=== PATIENT | male | born 1950 | race Caucasian/White ===

== ENCOUNTER → 2020-08-28 | Outpatient (CLI) | payer SELFPAY | LOC: M LABSMTC 14:51 | PROVIDERS: ATTEND Pediatrics | DX: Z20.828 Contact with and (suspected) exposure to other viral communicable diseases (principal) ==

== ENCOUNTER → 2020-09-03 | Outpatient (REF) | payer MEDICARE, MEDICAID ==
[~2020-09-03] MED LIST: APAP325T4 PO; ASPI-161 PO; ATEN25TA PO; D31000TA2 PO; DONE10TA90 PO; DULC10SU2 PR; FLEEENE12 PR; FLOM0.4C39 PO; FOLI1TAB11 PO; ISOS30TA4 PO; MILKSUS3 PO; NAME28CA PO; RISP-7 PO; SERT50TA29 PO
[2020-09-03 08:48] LABS: HEMATOCRIT 40.1 % (42.0-52.0); HEMOGLOBIN 12.8 g/dl (13.5-17.5); MEAN CORPUSCULAR HEMOGLOBIN 30.4 pg (27.0-33.0); MEAN CORPUSCULAR HGB CONC 31.9 g/dl (32.0-36.5); MEAN CORPUSCULAR VOLUME 95.2 fl (80.0-96.0); PLATELET COUNT, AUTOMATED 193 10^3/uL (150-450); RED BLOOD COUNT 4.21 10^6/uL (4.30-6.10); WHITE BLOOD COUNT 6.2 10^3/uL (4.0-10.0)
[2020-09-03 09:23] LABS: ALBUMIN 3.3 GM/DL (3.2-5.2); ALT/SGPT 18 U/L (12-78); BILIRUBIN,TOTAL 0.5 MG/DL (0.2-1.0); BLOOD UREA NITROGEN 20 MG/DL (7-18); CALCIUM LEVEL 8.5 MG/DL (8.8-10.2); CARBON DIOXIDE LEVEL 25 MEQ/L (21-32); CHLORIDE LEVEL 112 MEQ/L (98-107); GLOMERULAR FILTRATION RATE > 60.0 (>42); GLUCOSE, FASTING 80 MG/DL (70-100); POTASSIUM SERUM 3.5 MEQ/L (3.5-5.1); SODIUM LEVEL 144 MEQ/L (136-145); TOTAL PROTEIN 6.2 GM/DL (6.4-8.2)
== END ==
LOC: SKLAB8 07:00
PROVIDERS: ATTEND Internal Medicine
DX: R97.20 Elevated prostate specific antigen [PSA] (principal); I25.10 Atherosclerotic heart disease of native coronary artery without angina pectoris; I10 Essential (primary) hypertension; F03.90 Unspecified dementia, unspecified severity, without behavioral disturbance, psychotic disturbance, mood disturbance, and anxiety
CPT/HCPCS: 36415; 80053; 84443; 85027; G0103

== ENCOUNTER → 2020-09-04 | Outpatient (REF) | payer MEDICARE ==
[~2020-09-04] MED LIST changes: +ISOS1TAB35 PO; -ISOS30TA4 PO
== END ==
LOC: SKLAB8 09-03 14:49 → EDSTATUS 09-28 09:17
PROVIDERS: ATTEND Internal Medicine
DX: Z20.828 Contact with and (suspected) exposure to other viral communicable diseases (principal)

== ENCOUNTER → 2020-09-07 | Outpatient (REF) | payer MEDICARE | LOC: SKLAB8 08:00 | PROVIDERS: ATTEND Internal Medicine | DX: Z20.828 Contact with and (suspected) exposure to other viral communicable diseases (principal) ==

== ENCOUNTER → 2020-09-08 | Outpatient (REF) | payer MEDICAID, MEDICARE ==
[~2020-09-08] MED LIST changes: -ISOS1TAB35 PO; +ISOS30TA4 PO
[2020-09-08 11:51] LABS: HEMATOCRIT 42.8 % (42.0-52.0); HEMOGLOBIN 13.4 g/dl (13.5-17.5); MEAN CORPUSCULAR HEMOGLOBIN 29.7 pg (27.0-33.0); MEAN CORPUSCULAR HGB CONC 31.3 g/dl (32.0-36.5); MEAN CORPUSCULAR VOLUME 94.9 fl (80.0-96.0); PLATELET COUNT, AUTOMATED 228 10^3/uL (150-450); RED BLOOD COUNT 4.51 10^6/uL (4.30-6.10); WHITE BLOOD COUNT 5.8 10^3/uL (4.0-10.0)
[2020-09-08 12:21] LABS: BLOOD UREA NITROGEN 16 MG/DL (7-18); CALCIUM LEVEL 9.2 MG/DL (8.8-10.2); CARBON DIOXIDE LEVEL 26 MEQ/L (21-32); CHLORIDE LEVEL 108 MEQ/L (98-107); GLOMERULAR FILTRATION RATE > 60.0 (>42); GLUCOSE, FASTING 80 MG/DL (70-100); POTASSIUM SERUM 3.5 MEQ/L (3.5-5.1); SODIUM LEVEL 140 MEQ/L (136-145)
== END ==
LOC: SKLAB8 03:47
PROVIDERS: ATTEND Internal Medicine
DX: R19.7 Diarrhea, unspecified (principal)

== ENCOUNTER 2020-09-09 07:44 | Observation (INO) | payer MEDICARE ==
[~2020-09-09] VITALS: Ht 182.9 cm; Wt 147.0 kg
[2020-09-09] MEDS ORDERED: NS 1,000 ML IV ONE (08:00)
[2020-09-09 08:43] LABS: BASO % 0.3 % (0.0-1.0); EOS # 0.1 10^3/uL (0.0-0.5); EOS % 1.6 % (0.0-3.0); HEMATOCRIT 40.5 % (42.0-52.0); HEMOGLOBIN 12.8 g/dl (13.5-17.5); LYMPH # 1.2 10^3/uL (1.5-5.0); LYMPH % 20.8 % (24.0-44.0); MEAN CORPUSCULAR HEMOGLOBIN 29.7 pg (27.0-33.0); MEAN CORPUSCULAR HGB CONC 31.6 g/dl (32.0-36.5); MONO # 0.4 10^3/uL (0.0-0.8); MONO % 7.3 % (0.0-5.0); NEUTROPHILS % 69.7 % (36.0-66.0); PLATELET COUNT, AUTOMATED 196 10^3/uL (150-450); RED BLOOD COUNT 4.31 10^6/uL (4.30-6.10); WHITE BLOOD COUNT 5.8 10^3/uL (4.0-10.0)
[2020-09-09] MEDS ORDERED: MOM 30ML SUSPENSION UDC PO PRN (09:00)
--- NOTE | 2020-09-09 09:22 | ECGEPIP ---
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
[2020-09-09 09:23] LABS: ALBUMIN 3.5 GM/DL (3.2-5.2); ALT/SGPT 16 U/L (12-78); BILIRUBIN,DIRECT 0.2 MG/DL (0.0-0.2); BILIRUBIN,TOTAL 0.6 MG/DL (0.2-1.0); BLOOD UREA NITROGEN 19 MG/DL (7-18); CALCIUM LEVEL 8.8 MG/DL (8.8-10.2); CARBON DIOXIDE LEVEL 25 MEQ/L (21-32); CHLORIDE LEVEL 109 MEQ/L (98-107); CK-MB VALUE MASS 2.4 NG/ML (<3.6); CPK CREATINE PHOSPHOKINASE 181 U/L (39-308); CREATININE FOR GFR 1.13 MG/DL (0.70-1.30); FREE T4 1.12 NG/DL (0.76-1.46); GLOMERULAR FILTRATION RATE > 60.0 (>42); GLUCOSE, FASTING 91 MG/DL (70-100); MAGNESIUM LEVEL 2.3 MG/DL (1.8-2.4); MB/CK RELATIVE INDEX 1.33 (< OR =4); POTASSIUM SERUM 3.6 MEQ/L (3.5-5.1); SODIUM LEVEL 141 MEQ/L (136-145); TOTAL PROTEIN 6.6 GM/DL (6.4-8.2); TROPONIN I < 0.02 NG/ML (< 0.10)
--- NOTE | 2020-09-09 10:10 | REP ---
INDICATION: Syncope/near-syncope. aaaa COMPARISON: None. TECHNIQUE: Semi-erect portable AP chest radiograph. FINDINGS: A bipolar pacemaker is seen in the right heart view of the left side. Patient's left hand overlies the left lateral chest wall. There is a spiculated nodular opacity in the right apex measuring approximately 18 mm. A pulmonary nodule is suspected. Lung patton are otherwise clear. Heart is not felt to be enlarged. The pleural angles are sharp. No acute bony abnormality. IMPRESSION: Nodular density right lung apex 1.8 cm in diameter question pulmonary nodule. Pacemaker. Otherwise no acute disease. <Electronically signed by Alen Stoll > 09/09/20 [id number]
[2020-09-09 10:54] LABS: VITAMIN B12 LEVEL 404 PG/ML (247-911)
[2020-09-09] MEDS ORDERED: ISOVUE-370 76% 100ML VIAL As Ordered ONE (11:42)
[2020-09-09] MEDS ORDERED: ATEN25TA PO (12:29)
[2020-09-09] MEDS ORDERED: SERT50TA29 PO (12:29)
[2020-09-09] MEDS ORDERED: RISP-7 PO (12:29)
[2020-09-09] MEDS ORDERED: NAME28CA PO (12:29)
[2020-09-09] MEDS ORDERED: APAP325T4 PO (12:29)
[2020-09-09] MEDS ORDERED: ISOS30TA4 PO (12:29)
[2020-09-09] MEDS ORDERED: DONE10TA90 PO (12:29)
[2020-09-09] MEDS ORDERED: DULC10SU2 PR (12:29)
[2020-09-09] MEDS ORDERED: D31000TA2 PO (12:29)
[2020-09-09] MEDS ORDERED: ASPI-161 PO (12:29)
[2020-09-09] MEDS ORDERED: FOLI1TAB11 PO (12:29)
[2020-09-09] MEDS ORDERED: MILKSUS3 PO (12:29)
[2020-09-09] MEDS ORDERED: FLOM0.4C39 PO (12:29)
[2020-09-09] MEDS ORDERED: FLEEENE12 PR (12:29)
--- NOTE | 2020-09-09 12:32 | REP ---
INDICATION: syncope. COMPARISON: None. TECHNIQUE: Helical scanning is acquired. 5 mm axial images were reformatted. Coronal MPR images were generated. FINDINGS: Patient is rotated in the scanner gantry position suboptimally. Bone window settings demonstrate the visualized paranasal sinuses are clear. No bony calvarial defect is seen. There is moderate diffuse atrophy. Concordant ventricular enlargement and subarachnoid space enlargement. There is no evidence of intracranial hemorrhage. No mass, extra-axial fluid collection, or midline shift is seen. There is no visible cortical or deep white matter infarct. IMPRESSION: Moderate diffuse atrophy. No acute intracranial abnormality.. <Electronically signed by Alen Stoll > 09/09/20 [id number]
--- NOTE | 2020-09-09 12:35 | REP ---
INDICATION: syncope/lung mass. COMPARISON: None. TECHNIQUE: Contrast dose: 100 ML of Isovue [address] technique: Helical scanning is acquired and overlapping 1.5 mm and contiguous 3 mm axial images are reformatted. In addition, maximum intensity projection and multiplanar re-formation images are generated in sagittal and coronal imaging projections. FINDINGS: There is good opacification in the pulmonary arterial tree. There is no evidence of vessel cut off or filling defect to suggest pulmonary embolus. Homogeneous opacity is seen in the thoracic aorta. There is no evidence of aneurysm or dissection. Lung window settings demonstrate no evidence of pulmonary mass lesion or significant pulmonary nodule. No infiltrate is seen. The nodular opacity seen on today's radiograph appears to be related to the anterior end of the 1st rib on the right which is somewhat hypertrophied. No pulmonary nodule or mass lesion. There is some vascular calcification along the course of the left coronary artery. Pacemaker is seen in the right heart. There is no evidence of pleural or pericardial effusion. No hilar or mediastinal mass or adenopathy is observed. The great vessels are somewhat tortuous. In the upper abdomen, there are granulomatous calcifications in the spleen and liver. There is a cyst in the upper pole the left kidney. Normal adrenal glands. Visualized upper abdominal structures are otherwise unremarkable. IMPRESSION: No CT evidence of pulmonary embolus. No active cardiopulmonary disease. Cardiomegaly and pacemaker. Old granulomatous calcifications. <Electronically signed by Alen Stoll > 09/09/20 [id number]
--- NOTE | 2020-09-09 12:38 | REP ---
INDICATION: hematuria. COMPARISON: None. TECHNIQUE: Helical scanning was acquired and 4 mm axial images are re-formatted. Coronal and sagittal MPR images were generated and reviewed. The contrast enhancement dose is 100 mL of intravenous Isovue 370. FINDINGS: There are granulomatous calcifications scattered throughout the liver and the spleen. There is mild diffuse fatty infiltration of the liver. No focal mass lesion is seen. Normal adrenal glands. No abnormality is noted in the pancreas or the gallbladder. There is an upper pole cyst in the left kidney measuring 4.6 cm in greatest diameter. No renal mass lesion is seen. No evidence of intrarenal calculus. There is mild hydroureter on the right. No dang hydronephrosis is seen. No ureteral calculus is observed. Urinary bladder is moderately distended. The prostate is markedly enlarged and elevates the bladder base. There is some nodular bladder thickening which appears to be above the prostate gland and I cannot exclude a mass in the bladder wall. Consider cystoscopy. Seminal vesicles are unremarkable. No pelvic mass or adenopathy is seen. There is left colonic diverticulosis without CT evidence of diverticulitis. No bowel obstruction is seen. No retroperitoneal mass or adenopathy is observed. Normal caliber aorta. No bony destructive lesion. IMPRESSION: Probable mass in the posterior wall the bladder, 3.6 cm in diameter. This is associated with markedly enlarged prostate which elevates the bladder base substantially. There is mild right-sided hydroureter no dang hydronephrosis. There is a cyst in the left kidney. Fatty infiltration of the liver an old granulomatous calcifications are noted in the liver and spleen. Left colonic diverticulosis. Consider cystoscopy. <Electronically signed by Alen Stoll > 09/09/20 [id number]
[2020-09-09] MEDS ORDERED: MORPHINE 2 MG/ML 1ML VIAL (J2270) IV ONE (16:00)
[2020-09-09] MEDS ORDERED: NS 500 ML IV ONE (16:00)
--- NOTE | 2020-09-09 17:23 | HPEPDOC ---
[facility] Medical History & Physical Date of Admission Sep 09, 2020 Date of Service: Sep 09, 2020 History and Physical CHIEF COMPLAINT: lightheadedness HISTORY OF PRESENT ILLNESS: 70M with advanced dementia, resident at jail brought in today for brief episode of lightheadedness at the jail. He was being help up when he got dizzy and fell into the arms of his aids. I'm told by ED staff that he didn't fall nor hit his head. Patient isn't able to collaborate or give me any history due to his advanced dementia. History obtained from #[id number]. PAST MEDICAL HISTORY: Dementia HTN HLD CAD (Stent 2002) Pacemaker Arthritis PAST SURGICAL HISTORY: Appendectomy ?Prostate biopsy? sister unsure SOCIAL HISTORY: Denies alcohol use Denies tobacco use. Hx smoking in past, sister unsure Denies illicit drug use FAMILY HISTORY: Sister breast cancer ALLERGIES: Please see below. REVIEW OF SYSTEMS: Unable to obtain ROS due to advanced dementia. HOME MEDICATIONS: Please see below. PHYSICAL EXAMINATION: Constitutional: Awake and alert, in no apparent distress, able to follow the very simplest commands such as squeezing my fingers ENT: dry mucous membranes Respiratory: Lungs CTA bilaterally. No respiratory distress. No use of accessory muscles. Cardiovascular: RRR S1 and S2 are normal Gastrointestinal: Abdomen is soft, non distended, non tender, BS present. Musculoskeletal: No LE edema Neurologic: unable to assess Mental Status: A&O x0, severe dementia Skin: Warm, dry LABORATORY DATA: See below. IMAGING: see chart MICROBIOLOGY: Please see below. ASSESSMENT/PLAN # Syncope: clinically dehydrated. IVFs. PT/OT. # Hematuria: Jacobs. Per recs from Dr Cameron, admit for obs and should self resolve by tomorrow. Consult urology if continues to have gross hematuria. # Bladder mass: follow up with urology upon discharge if hematuria stops # Dementia: quiet time, bedside window, IM halloo for extreme agitation # HTN: continue some mods meds, monitor and titrate # CAD: ASA, statin, home meds # MDD: continue home meds # BPH: Flomax # Dvt prophylaxis Heparin A Yousef Hospitalist Vital Signs Vital Signs Date Time Temp Pulse Resp B/P (MAP) Pulse Ox O2 Delivery O2 Flow Rate FiO2 09/09/20 16:00 73 18 148/68 (94) 97 Room Air 09/09/20 07:47 97.9 Laboratory Data Labs 24H Laboratory Tests 2 09/09/20 08:18: Urine Color YELLOW, Urine Appearance CLEAR, Urine pH 5.0, Urine Specific [place] 1.015, Urine Protein NEGATIVE, Urine Glucose (UA) NEGATIVE, Urine Ketones NEGATIVE, Urine Blood 3+H, Urine Nitrite NEGATIVE, Urine Bilirubin NEGATIVE, Urine Urobilinogen 0.2, Urine Leukocyte Esterase NEGATIVE, Urine WBC (Auto) 4H, Urine RBC (Auto) 166H, Urine Hyaline Casts (Auto) 0, Urine Bacteria (Auto) NEGATIVE, Urine Squamous Epithelial Cells 0, Urine Sperm (Auto) 09/09/20 08:25: Immature Granulocyte % (Auto) 0.3, Neutrophils (%) (Auto) 69.7H, Lymphocytes (%) (Auto) 20.8L, Monocytes (%) (Auto) 7.3H, Eosinophils (%) (Auto) 1.6, Basophils (%) (Auto) 0.3, Neutrophils # (Auto) 4.0, Lymphocytes # (Auto) 1.2L, Monocytes # (Auto) 0.4, Eosinophils # (Auto) 0.1, Basophils # (Auto) 0.0, Nucleated Red Blood Cells % (auto) 0.0, Anion Gap 7L, Glomerular Filtration Rate > 60.0, Lactic Acid Level 2.4*H, Calcium Level 8.8, Magnesium Level 2.3, Total Bilirubin 0.6, Direct Bilirubin 0.2, Aspartate Amino Transf (AST/SGOT) 18, Alanine Aminotransferase (ALT/SGPT) 16, Alkaline Phosphatase 73, Total Creatine Kinase 181, Creatine Kinase MB 2.4, Creatine Kinase MB Relative Index 1.33, Troponin I < 0.02, Total Protein 6.6, Albumin 3.5, Albumin/Globulin Ratio 1.1, Vitamin B12 Level 404, Thyroid Stimulating Hormone (TSH) 3.340, Free Thyroxine 1.12 CBC/BMP Laboratory Tests 09/09/20 08:25 Microbiology Microbiology 09/09/20 Blood Culture, Received Pending Home Medications Scheduled Aspirin (Aspirin EC) 81 Mg Tablet.dr, 81 MG PO DAILY DECREASE FROM 325MG, NOT STARTED YET Atenolol (Atenolol) 25 Mg Tablet, 25 MG PO DAILY Cholecalciferol (Vitamin D3) (Vitamin D3) 1,000 Unit Tablet, 1,000 UNITS PO DAILY TAKES DAILY AT NOON Donepezil HCl (Donepezil HCl) 10 Mg Tablet, 10 MG PO DAILY Folic Acid (Folic Acid) 1 Mg Tablet, 1 MG PO DAILY Isosorbide Mononitrate (Isosorbide Mononitrate ER) 30 Mg Tab.er.24h, 30 MG PO QHS Memantine HCl (Namenda Xr) 28 Mg Cap.spr.24, 28 MG PO QHS Risperidone (Risperidone) 0.5 Mg Tablet, 0.5 MG PO QHS Sertraline HCl (Sertraline HCl) 50 Mg Tablet, 50 MG PO DAILY Tamsulosin HCl (Flomax) 0.4 Mg Capsule, 0.4 MG PO QHS Scheduled PRN Acetaminophen (Acetaminophen) 325 Mg Tablet, 650 MG PO Q4H PRN for PAIN Bisacodyl (Dulcolax) 10 Mg Supp.rect, 10 MG [place] DAILY PRN for CONSTIPATION Magnesium Hydroxide (Milk of Magnesia) 400 Mg/5 Ml Oral.susp, 2,400 MG PO DAILY PRN for CONSTIPATION Sodium Phosphate,[place]-Dibasic (Fleet Enema) 133 Ml Enema, 1 MIRNA [place] DAILY PRN for CONSTIPATION Allergies Coded Allergies: NSAIDS (Non-Steroidal Anti-Inflamma (Verified Allergy, Unknown, 09/09/20) Penicillins (Verified Allergy, Unknown, 09/09/20) WILIAM CHAVEZ MD Sep 09, 2020 17:23
[2020-09-09] MEDS ORDERED: ACETAMINOPHEN TAB 650MG DOSE (2X325MG) PO PRN (18:00)
[2020-09-09] MEDS ORDERED: BISACODYL 10 MG SUPP PR PRN (19:00)
[2020-09-09] MEDS ORDERED: NS 1,000 ML IV SCH (19:15)
[2020-09-09 20:28] VITALS: BP 118/74
[2020-09-09] MEDS: HEPARIN SOD (PORCINE) 5000UNITS/ML 1ML VIAL/SYRINGE SC SCH (21:00)
[2020-09-09] MEDS ORDERED: QUEtiapine FUMARATE 25 MG TAB PO ONE (22:00)
[2020-09-09] MEDS: risperiDONE 0.5 MG TAB PO SCH (22:38)
[2020-09-09] MEDS: TAMSULOSIN 0.4 MG CAP PO SCH (22:39)
[2020-09-09] MEDS: ISOSORBIDE MON. (IMDUR) 30 MG XR TAB PO SCH (22:41)
[2020-09-09] MEDS: DOCUSATE SODIUM 100MG CAPSULE PO SCH (22:41)
[2020-09-10] VITALS: BP 108/83
[2020-09-10 04:00] VITALS: BP 101/60
[2020-09-10 08:00] VITALS: BP 113/58
[2020-09-10] MEDS: DOCUSATE SODIUM 100MG CAPSULE PO SCH ×2 (09:00→21:00)
[2020-09-10] MEDS: HEPARIN SOD (PORCINE) 5000UNITS/ML 1ML VIAL/SYRINGE SC SCH ×2 (09:13→21:14)
[2020-09-10] MEDS: SERTRALINE HCL 50 MG TAB PO SCH (09:13)
[2020-09-10] MEDS: ASPIRIN 81 MG ENTERIC TAB PO SCH (09:13)
[2020-09-10] MEDS: atenoloL 25 MG TAB PO SCH (09:15)
--- NOTE | 2020-09-10 11:58 | IPNPDOC ---
Date Seen The patient was seen on 09/10/20. Progress Note SUBJECTIVE: patient was seen and examined at bedside. advanced dementia, not answering orientation questions appropriately. Coleman bag examined, c/w nurse, blood with clots seen this morning and overnight. OBJECTIVE PHYSICAL EXAMINATION: VITAL SIGNS: Please see below General: NAD, comfortable HEENT: PERRLA, EOMI, sclerae clear Neck: supple, normal ROM, no JVD Respiratory: lungs CTAB, no wheeze, no rales, no crackles CVS: RRR, normal S1, S2, no murmurs Abdo: soft, no masses, no hepatosplenomegaly, BS+, no rebound tenderness Extremities: no edema, pulses 2+ MSK: no joint deformities, normal ROM Neuro: no focal neuro deficits, moving all 4 extremities, CN2-12 intact. Strength 5/5 in all 4 extremities. No nystagmus. Psych: calm, advanced dementia, AAO x 0 LABORATORY DATA, IMAGING STUDIES, MICROBIOLOGY: Please see below. Echocardiogram: ordered on 09/10/20 DVT prophylaxis ordered?: ASSESSMENT AND PLAN: 70 yo M with advanced dementia, CAD, HTN, HLD, pacemaker, presented to ER with a n episode of pre-syncope. Coleman inserted in the ED, precipitated hematuria with clots. CT imaging showed bladder mass. Possibility for bleeding mass agitated by coleman catheter. Urology consulted for ongoing hematuria. PROBLEMS: # Syncope: clinically dehydrated. IVFs. PT/OT. Check 2D echo. Check carotid US. Check b12, folate, vitamin d # Hematuria: Coleman. ongoing hematuria with clots. CBC pending. Urology consulted, d/w Dr. Peña. # Bladder mass: follow up with urology upon discharge if hematuria stops # Dementia: quiet time, bedside window, IM haldol prn for extreme agitation # HTN: continue some mods meds, monitor and titrate # CAD: ASA, statin, home meds # MDD: continue home meds # BPH: Flomax # Dvt prophylaxis Heparin VS, I&O, 24H, Fishbone Vital Signs/I&O Vital Signs Date Time Temp Pulse Resp B/P (MAP) Pulse Ox O2 Delivery O2 Flow Rate FiO2 09/10/20 09:15 76 113/58 09/10/20 08:00 97.9 18 98 Room Air I&O- Last 24 Hours up to 6 AM 09/10/20 06:00 Intake Total 1500 ml Output Total 600 ml Balance 900 ml Laboratory Data 24H LABS Laboratory Tests 2 09/09/20 18:00: Coronavirus (COVID-19)(PCR) NEGATIVE, Influenza Type A (RT-PCR) NEGATIVE, Influenza Type B (RT-PCR) NEGATIVE, Respiratory Syncytial Virus (PCR) NEGATIVE 09/09/20 18:41: Lactic Acid Followup at 4 Hours 1.1 Microbiology Microbiology 09/09/20 Blood Culture - Preliminary, Resulted No growth after 24 hours . All specim... CHEY PALACIO MD Sep 10, 2020 11:58
[2020-09-10 12:00] VITALS: BP 114/65
[2020-09-10 12:12] LABS: BASO % 0.2 % (0.0-1.0); EOS # 0.1 10^3/uL (0.0-0.5); EOS % 0.7 % (0.0-3.0); HEMATOCRIT 38.3 % (42.0-52.0); HEMOGLOBIN 12.1 g/dl (13.5-17.5); LYMPH # 1.2 10^3/uL (1.5-5.0); LYMPH % 12.7 % (24.0-44.0); MEAN CORPUSCULAR HEMOGLOBIN 30.1 pg (27.0-33.0); MEAN CORPUSCULAR HGB CONC 31.6 g/dl (32.0-36.5); MEAN CORPUSCULAR VOLUME 95.3 fl (80.0-96.0); MONO # 0.7 10^3/uL (0.0-0.8); MONO % 7.3 % (0.0-5.0); NEUTROPHILS # 7.2 10^3/uL (1.5-8.5); NEUTROPHILS % 78.9 % (36.0-66.0); PLATELET COUNT, AUTOMATED 200 10^3/uL (150-450); RED BLOOD COUNT 4.02 10^6/uL (4.30-6.10); WHITE BLOOD COUNT 9.1 10^3/uL (4.0-10.0)
[2020-09-10 12:39] LABS: BLOOD UREA NITROGEN 13 MG/DL (7-18); CALCIUM LEVEL 8.5 MG/DL (8.8-10.2); CARBON DIOXIDE LEVEL 25 MEQ/L (21-32); CHLORIDE LEVEL 111 MEQ/L (98-107); CREATININE FOR GFR 1.09 MG/DL (0.70-1.30); GLOMERULAR FILTRATION RATE > 60.0 (>42); GLUCOSE, FASTING 84 MG/DL (70-100); POTASSIUM SERUM 3.7 MEQ/L (3.5-5.1); SODIUM LEVEL 142 MEQ/L (136-145)
[2020-09-10 12:40] LABS: ALBUMIN 3.4 GM/DL (3.2-5.2); ALT/SGPT 17 U/L (12-78); MAGNESIUM LEVEL 2.4 MG/DL (1.8-2.4); TOTAL PROTEIN 6.2 GM/DL (6.4-8.2)
[2020-09-10 12:47] LABS: TOTAL 25(OH) VITAMIN D 25.8 NG/ML (30.0-100.0); VITAMIN B12 LEVEL 492 PG/ML (247-911)
[2020-09-10 12:48] LABS: FOLATE > 24.0 NG/ML (>5.4)
--- NOTE | 2020-09-10 15:02 | REP ---
INDICATION: syncope COMPARISON: None. TECHNIQUE: Real-time ultrasound evaluation and duplex Doppler interrogation of the extracranial carotid vasculature is performed. FINDINGS: Antegrade flow is observed in both vertebral arteries. Exam quality is inhibited by patient motion and lack of ability to fully cooperate. Right carotid: The right common carotid artery shows diffuse intimal thickening but is otherwise unremarkable. There ismild mixed plaquing in the right carotid bulb and proximal ICA on two-dimensional scanning. Color flow and spectral Doppler interrogation are unremarkable on the right. Velocity chart right carotid: Right CCA PSV: 73 cm/S Right ICA PSV: 41 cm/S Right ICA EDV: 11 cm/S Right ECA PSV: 65 cm/S Right ICA/CCA ratio: 0.6 Left carotid: The left common carotid artery shows diffuse intimal thickening but is otherwise unremarkable. There is mild mixed plaquing in the left carotid bulb and proximal ICA on two-dimensional scanning. Color flow and spectral Doppler interrogation are unremarkable on the left. Velocity chart left carotid: Left CCA PSV: 61 cm/S Left ICA PSV: 43 cm/S Left ICA EDV: 8 cm/S Left ECA PSV: 23 cm/S Left ICA/CCA ratio: 0.7 IMPRESSION: Less than 50% category narrowing in the right internal carotid artery by Doppler velocity criteria. Less than 50% category narrowing in the left ICA by Doppler velocity criteria. <Electronically signed by Alen Stoll > 09/10/20 [id number]
[2020-09-10 16:00] VITALS: BP 105/58
--- NOTE | 2020-09-10 17:58 | SMCUROLCON ---
Urology Consultation General Date of Consultation 09/10/20 Reason For Consultation This patient is seen for Hematuria/Orthostatic Syncope/Urinary Retention. History of Present Illness The patient is a 70-year-old male who is [facility]. During his admission, he was noted to have some hematuria when a Jacobs catheter was inserted. CT scan showed that he had a large bladder mass and urology was called. Past Medical History Medical History Dementia hypertension HLD CAD Pacemaker insertion Arthritis Surgical Hstory Appendectomy Possible prostate biopsy in the remote past Family History Family History Sister has a history of breast cancer No family history of prostate disease Social History Social History Patient has severe dementia and is a resident at a penitentiary He does not drink or smoke but does have a past history of smoking * Smoker: former Smoker Alcohol: Denies Drugs: denies Medications Current Medications Current Medications Medications (Trade) Dose Ordered Sig/Belén Route PRN Reason Start Time Stop Time Status Last Admin Dose Admin Acetaminophen (Tylenol Tab) 650 mg Q4H PRN PO PAIN OR FEVER 09/09/20 18:00 09/09/20 22:43 Aspirin (Ecotrin) 81 mg DAILY PO 09/10/20 09:00 09/10/20 09:13 Atenolol (Tenormin) 25 mg DAILY PO 09/10/20 09:00 09/10/20 09:15 Bisacodyl (Dulcolax Suppository) 10 mg DAILY PRN RI CONSTIPATION 09/09/20 19:00 Docusate Sodium (Colace) 100 mg BID PO 09/09/20 21:00 09/09/20 22:41 Heparin Sodium (Porcine) (Heparin) 5,000 units Q12H SC 09/09/20 21:00 09/10/20 09:13 Home Med (Med Rec Complete!) ASDIRECTED XX 09/09/20 12:45 09/09/20 19:04 DC Isosorbide Mononitrate (Imdur) 30 mg QHS PO 09/09/20 21:00 09/09/20 22:41 Magnesium Hydroxide (Milk Of Magnesia) 30 ml DAILY PRN PO CONSTIPATION 09/09/20 09:00 Risperidone (RisperDAL) 0.5 mg QHS PO 09/09/20 21:00 09/09/20 22:38 Sertraline HCl (Zoloft) 50 mg DAILY PO 09/10/20 09:00 09/10/20 09:13 Sodium Chloride 1,000 ml @ 100 mls/hr Q10H IV 09/09/20 19:15 09/10/20 15:14 DC 09/09/20 19:42 Tamsulosin HCl (Flomax) 0.4 mg QHS PO 09/09/20 21:00 09/09/20 22:39 Allergies Allergies: Coded Allergies: NSAIDS (Non-Steroidal Anti-Inflamma (Verified Allergy, Unknown, 09/09/20) Penicillins (Verified Allergy, Unknown, 09/09/20) Review of Systems General: Reports: Normal Appetite; Denies: Fatigue, Malaise Constitutional: Denies: Fever, Chills, Sweats, Weakness, Malaise Eyes: Denies: Pain, Vision change ENT: Denies: Head Aches, Sore Throat, Epistaxis Skin: Denies: Rash, Lesions, Breakdown, Nail Changes Pulmonary: Denies: Dyspnea, Cough Cardiovascular: Denies Chest Pain, Denies Palpitations Gastrointestinal: Denies: Nausea, Vomiting, Abdominal Pain Genitourinary: Denies: Dysuria, Frequency, Incontinence, Hematuria Hematologic: Denies: Bruising, Bleeding Excessively Neurological: Reports: Confusion Physical Examination General Exam: Alert, No Acute Distress EYE EXAM: PERRLA, Conjunctiva & lids normal, EOMI; No: Sclera icteric ENT EXAM: Atraumatic, Mucous membr. moist/pink, Pharynx Normal Neck Exam: Supple; No: JVD, thyromegaly Chest Exam: Clear to auscultation, Normal air movement Heart Exam: Rate Normal, Regular Rhythm, Normal S1, Normal S2; No: Murmurs, Rubs Abdomen Exam: Normal Bowel Sounds, Soft; No: Tenderness, Hepatospenomegaly Male Exam: Normal Genital Exam Vital Signs/I&O Vital Signs Date Time Temp Pulse Resp B/P (MAP) Pulse Ox O2 Delivery O2 Flow Rate FiO2 09/10/20 16:00 97.3 70 18 105/58 (74) 90 09/10/20 12:00 Nasal Cannula I&O- Last 24 Hours up to 6 AM 09/10/20 06:00 Intake Total 1500 ml Output Total 600 ml Balance 900 ml Laboratory Data 24H Labs Laboratory Tests 2 09/09/20 18:00: Coronavirus (COVID-19)(PCR) NEGATIVE, Influenza Type A (RT-PCR) NEGATIVE, Influenza Type B (RT-PCR) NEGATIVE, Respiratory Syncytial Virus (PCR) NEGATIVE 09/09/20 18:41: Lactic Acid Followup at 4 Hours 1.1 09/10/20 11:37: Immature Granulocyte % (Auto) 0.2, Neutrophils (%) (Auto) 78.9H, Lymphocytes (%) (Auto) 12.7L, Monocytes (%) (Auto) 7.3H, Eosinophils (%) (Auto) 0.7, Basophils (%) (Auto) 0.2, Neutrophils # (Auto) 7.2, Lymphocytes # (Auto) 1.2L, Monocytes # (Auto) 0.7, Eosinophils # (Auto) 0.1, Basophils # (Auto) 0.0, Nucleated Red Blood Cells % (auto) 0.0, Anion Gap 6L, Glomerular Filtration Rate > 60.0, Calcium Level 8.5L, Magnesium Level 2.4, Total Bilirubin 1.0#, Aspartate Amino Transf (AST/SGOT) 19, Alanine Aminotransferase (ALT/SGPT) 17, Alkaline Phosphatase 62, Total Protein 6.2L, Albumin 3.4, Albumin/Globulin Ratio 1.2, Vitamin B12 Level 492, 25-Hydroxy Vitamin D Total 25.8L, Folate > 24.0 CBC/BMP Laboratory Tests 09/10/20 11:37 Microbiology Microbiology 09/09/20 Blood Culture - Preliminary, Resulted No growth after 24 hours . All specim... Assessment History of incomplete bladder emptying Bladder mass. This may be a significantly enlarged prostate or a bladder tumor. Plan Jacobs catheter has been removed. I see no reason to have to keep a Jacobs catheter and is on his able to empty his bladder. Further evaluation of the bladder mass or enlarged prostate is not necessary at this time based on the patient's general medical condition and as per the patient and family's wishes for supportive care only. Time Spent on Consult: Time Spent / Consult (Minutes): 55 MICHELLE CROWE MD Sep 10, 2020 17:51
[2020-09-10 20:00] VITALS: BP 128/55
[2020-09-10] MEDS: ISOSORBIDE MON. (IMDUR) 30 MG XR TAB PO SCH (21:15)
[2020-09-10] MEDS: TAMSULOSIN 0.4 MG CAP PO SCH (21:15)
[2020-09-10] MEDS: risperiDONE 0.5 MG TAB PO SCH (21:15)
[2020-09-11] VITALS: BP 111/72
[2020-09-11 03:49] VITALS: BP 113/70
[2020-09-11 05:43] LABS: BASO % 0.3 % (0.0-1.0); EOS # 0.1 10^3/uL (0.0-0.5); HEMATOCRIT 37.8 % (42.0-52.0); HEMOGLOBIN 12.1 g/dl (13.5-17.5); LYMPH # 1.6 10^3/uL (1.5-5.0); MEAN CORPUSCULAR HEMOGLOBIN 30.6 pg (27.0-33.0); MEAN CORPUSCULAR VOLUME 95.7 fl (80.0-96.0); MONO # 0.5 10^3/uL (0.0-0.8); MONO % 8.5 % (0.0-5.0); NEUTROPHILS # 3.7 10^3/uL (1.5-8.5); NEUTROPHILS % 61.9 % (36.0-66.0); PLATELET COUNT, AUTOMATED 201 10^3/uL (150-450); RED BLOOD COUNT 3.95 10^6/uL (4.30-6.10)
[2020-09-11 06:06] LABS: BLOOD UREA NITROGEN 15 MG/DL (7-18); CALCIUM LEVEL 8.4 MG/DL (8.8-10.2); CARBON DIOXIDE LEVEL 25 MEQ/L (21-32); CHLORIDE LEVEL 110 MEQ/L (98-107); CREATININE FOR GFR 1.06 MG/DL (0.70-1.30); GLOMERULAR FILTRATION RATE > 60.0 (>42); GLUCOSE, FASTING 86 MG/DL (70-100); POTASSIUM SERUM 3.2 MEQ/L (3.5-5.1); SODIUM LEVEL 141 MEQ/L (136-145)
[2020-09-11 07:39] VITALS: BP 106/58
[2020-09-11] MEDS ORDERED: POTASSIUM CHLORIDE 10 MEQ SR TABLET PO ONE (08:00)
[2020-09-11] MEDS: HEPARIN SOD (PORCINE) 5000UNITS/ML 1ML VIAL/SYRINGE SC SCH (08:51)
[2020-09-11] MEDS: SERTRALINE HCL 50 MG TAB PO SCH (08:51)
[2020-09-11] MEDS: ASPIRIN 81 MG ENTERIC TAB PO SCH (08:51)
[2020-09-11 08:52] VITALS: BP 106/58
[2020-09-11] MEDS: atenoloL 25 MG TAB PO SCH (08:52)
[2020-09-11] MEDS: DOCUSATE SODIUM 100MG CAPSULE PO SCH (08:53)
[2020-09-11 12:00] VITALS: BP 113/66
== END 2020-09-11 13:33 ==
LOC: M ED 07:44 → M ED INP 18:25 → INTOOBSV 18:25 → ENRESERV 18:58 → M PCU 20:26
PROVIDERS: ADMIT Family Medicine; ATTEND Family Medicine
DX: R55 Syncope and collapse (principal); R31.9 Hematuria, unspecified; N32.9 Bladder disorder, unspecified; R33.9 Retention of urine, unspecified; F03.90 Unspecified dementia, unspecified severity, without behavioral disturbance, psychotic disturbance, mood disturbance, and anxiety; E86.0 Dehydration; I10 Essential (primary) hypertension; E78.49 Other hyperlipidemia; J44.9 Chronic obstructive pulmonary disease, unspecified; Z95.0 Presence of cardiac pacemaker; I25.10 Atherosclerotic heart disease of native coronary artery without angina pectoris; N40.0 Benign prostatic hyperplasia without lower urinary tract symptoms; F32.9 Major depressive disorder, single episode, unspecified; Z87.891 Personal history of nicotine dependence; Z79.899 Other long term (current) drug therapy; Z88.0 Allergy status to penicillin; Z88.8 Allergy status to other drugs, medicaments and biological substances; Z79.82 Long term (current) use of aspirin
CPT/HCPCS: 36415; 70450; 71045; 71275; 74177; 80048; 80053; 80076; 81001; 82306; 82550; 82553; 82607; 82746; 83605; 83735; 84439; 84443; 84484; 85025; 87040; 87631; 93005; 93041; 93880; 94760; 96361; 96372; 96374; 96375; 97161; 99285; G0378; J1644; J2270; Q9967

== ENCOUNTER → 2020-09-18 | Outpatient (REF) | payer MEDICARE | LOC: SKLAB8 10:02 | PROVIDERS: ATTEND Internal Medicine | DX: Z20.828 Contact with and (suspected) exposure to other viral communicable diseases (principal) ==

== ENCOUNTER → 2020-10-02 | Outpatient (REF) | payer MEDICARE | LOC: SKLAB8 10:00 | PROVIDERS: ATTEND Internal Medicine | DX: Z20.828 Contact with and (suspected) exposure to other viral communicable diseases (principal) ==

== ENCOUNTER → 2020-10-09 | Outpatient (REF) | payer MEDICARE | LOC: SKLAB8 10:00 | PROVIDERS: ATTEND Internal Medicine | DX: Z11.52 Encounter for screening for COVID-19 (principal) ==

== ENCOUNTER → 2020-10-16 | Outpatient (REF) | payer MEDICARE | LOC: SKLAB8 10:00 | PROVIDERS: ATTEND Internal Medicine | DX: Z20.822 Contact with and (suspected) exposure to COVID-19 (principal) ==

== ENCOUNTER → 2020-10-23 | Outpatient (REF) | payer MEDICARE ==
[~2020-10-23] MED LIST changes: +ISOS1TAB35 PO; -ISOS30TA4 PO
== END ==
LOC: SKLAB8 09:00
PROVIDERS: ATTEND Internal Medicine
DX: Z20.822 Contact with and (suspected) exposure to COVID-19 (principal)

== ENCOUNTER → 2020-10-30 | Outpatient (REF) | payer MEDICARE | LOC: SKLAB8 10:00 | PROVIDERS: ATTEND Internal Medicine | DX: Z20.822 Contact with and (suspected) exposure to COVID-19 (principal) ==

== ENCOUNTER → 2020-11-06 | Outpatient (REF) | payer MEDICARE ==
[~2020-11-06] MED LIST changes: -ISOS1TAB35 PO; +ISOS30TA4 PO
== END ==
LOC: SKLAB8 10:30
PROVIDERS: ATTEND Internal Medicine
DX: Z20.822 Contact with and (suspected) exposure to COVID-19 (principal)

== ENCOUNTER → 2020-11-13 | Outpatient (REF) | payer MEDICARE ==
[~2020-11-13] MED LIST changes: +ISOS1TAB35 PO; -ISOS30TA4 PO
== END ==
LOC: SKLAB8 09:00
PROVIDERS: ATTEND Internal Medicine
DX: Z20.822 Contact with and (suspected) exposure to COVID-19 (principal)

== ENCOUNTER → 2020-11-20 | Outpatient (REF) | payer MEDICARE | LOC: SKLAB8 09:00 | PROVIDERS: ATTEND Internal Medicine | DX: Z20.822 Contact with and (suspected) exposure to COVID-19 (principal) ==

== ENCOUNTER → 2020-11-27 | Outpatient (REF) | payer MEDICARE | LOC: SKLAB8 10:00 | PROVIDERS: ATTEND Internal Medicine | DX: Z20.822 Contact with and (suspected) exposure to COVID-19 (principal) ==

== ENCOUNTER → 2020-12-11 | Outpatient (REF) | payer MEDICARE | LOC: SKLAB8 09:00 | PROVIDERS: ATTEND Internal Medicine | DX: Z20.822 Contact with and (suspected) exposure to COVID-19 (principal) ==

== ENCOUNTER → 2020-12-18 | Outpatient (REF) | payer MEDICARE | LOC: SKLAB8 10:00 | PROVIDERS: ATTEND Internal Medicine | DX: Z20.822 Contact with and (suspected) exposure to COVID-19 (principal) ==

== ENCOUNTER → 2021-01-03 | Outpatient (REF) | payer MEDICARE | LOC: SKLAB8 09:00 | PROVIDERS: ATTEND Internal Medicine | DX: Z20.822 Contact with and (suspected) exposure to COVID-19 (principal) ==

== ENCOUNTER → 2021-03-20 | Outpatient (REF) | payer MEDICARE ==
[2021-03-20 09:37] LABS: HEMOGLOBIN 14.6 g/dl (13.5-17.5); MEAN CORPUSCULAR HEMOGLOBIN 28.9 pg (27.0-33.0); MEAN CORPUSCULAR HGB CONC 31.7 g/dl (32.0-36.5); MEAN CORPUSCULAR VOLUME 91.1 fl (80.0-96.0); PLATELET COUNT, AUTOMATED 246 10^3/uL (150-450); RED BLOOD COUNT 5.05 10^6/uL (4.30-6.10); WHITE BLOOD COUNT 7.7 10^3/uL (4.0-10.0)
[2021-03-20 10:15] LABS: ALBUMIN 3.7 GM/DL (3.2-5.2); ALT/SGPT 15 U/L (12-78); BILIRUBIN,TOTAL 0.4 MG/DL (0.2-1.0); BLOOD UREA NITROGEN 19 MG/DL (7-18); CALCIUM LEVEL 9.1 MG/DL (8.8-10.2); CARBON DIOXIDE LEVEL 25 MEQ/L (21-32); CHLORIDE LEVEL 108 MEQ/L (98-107); CREATININE FOR GFR 1.06 MG/DL (0.70-1.30); GLOMERULAR FILTRATION RATE > 60.0 (>42); GLUCOSE, FASTING 77 MG/DL (70-100); POTASSIUM SERUM 3.9 MEQ/L (3.5-5.1); SODIUM LEVEL 140 MEQ/L (136-145); TOTAL PROTEIN 7.4 GM/DL (6.4-8.2)
== END ==
LOC: SKLAB8 07:00
PROVIDERS: ATTEND Internal Medicine
DX: R97.20 Elevated prostate specific antigen [PSA] (principal); F03.91 Unspecified dementia, unspecified severity, with behavioral disturbance; I10 Essential (primary) hypertension
CPT/HCPCS: 36415; 80053; 80164; 85027; G0103

== ENCOUNTER → 2021-04-18 | Outpatient (REF) | payer MEDICARE ==
[2021-04-18 09:02] LABS: BASO # 0.1 10^3/uL (0.0-0.2); BASO % 0.8 % (0.0-1.0); EOS # 0.3 10^3/uL (0.0-0.5); EOS % 4.1 % (0.0-3.0); HEMOGLOBIN 14.7 g/dl (13.5-17.5); LYMPH # 1.9 10^3/uL (1.5-5.0); LYMPH % 28.7 % (24.0-44.0); MEAN CORPUSCULAR HEMOGLOBIN 29.3 pg (27.0-33.0); MEAN CORPUSCULAR VOLUME 91.8 fl (80.0-96.0); MONO # 0.4 10^3/uL (0.0-0.8); MONO % 6.1 % (2.0-8.0); NEUTROPHILS % 59.8 % (36.0-66.0); PLATELET COUNT, AUTOMATED 229 10^3/uL (150-450); RED BLOOD COUNT 5.01 10^6/uL (4.30-6.10); WHITE BLOOD COUNT 6.6 10^3/uL (4.0-10.0)
[2021-04-18 09:20] LABS: ALBUMIN 3.3 GM/DL (3.2-5.2); ALT/SGPT 19 U/L (12-78); BILIRUBIN,TOTAL 0.4 MG/DL (0.2-1.0); BLOOD UREA NITROGEN 16 MG/DL (7-18); CALCIUM LEVEL 8.9 MG/DL (8.8-10.2); CARBON DIOXIDE LEVEL 27 MEQ/L (21-32); CHLORIDE LEVEL 111 MEQ/L (98-107); CREATININE FOR GFR 1.22 MG/DL (0.70-1.30); GLOMERULAR FILTRATION RATE > 60.0 (>42); GLUCOSE, FASTING 107 MG/DL (70-100); POTASSIUM SERUM 4.1 MEQ/L (3.5-5.1); SODIUM LEVEL 145 MEQ/L (136-145); TOTAL PROTEIN 7.1 GM/DL (6.4-8.2); VALPROIC ACID (DEPAKOTE) 21.9 UG/ML (50.0-100.0)
== END ==
LOC: SKLAB8 08:00
PROVIDERS: ATTEND Internal Medicine
DX: R56.9 Unspecified convulsions (principal)

== ENCOUNTER → 2021-07-24 | Outpatient (REF) | payer MEDICARE | LOC: SKLAB8 10:00 | PROVIDERS: ATTEND Internal Medicine | DX: Z20.822 Contact with and (suspected) exposure to COVID-19 (principal) ==

== ENCOUNTER → 2021-07-28 | Outpatient (REF) | payer MEDICARE | LOC: SKLAB8 07:08 | PROVIDERS: ATTEND Internal Medicine | DX: Z20.822 Contact with and (suspected) exposure to COVID-19 (principal) ==

== ENCOUNTER → 2021-07-31 | Outpatient (REF) | payer MEDICARE | LOC: SKLAB8 05:31 | PROVIDERS: ATTEND Internal Medicine | DX: Z20.822 Contact with and (suspected) exposure to COVID-19 (principal) ==

== ENCOUNTER → 2021-08-04 | Outpatient (REF) | payer MEDICARE | LOC: SKLAB8 06:12 | PROVIDERS: ATTEND Internal Medicine | DX: Z20.822 Contact with and (suspected) exposure to COVID-19 (principal) ==

== ENCOUNTER → 2021-08-07 | Outpatient (REF) | payer MEDICARE | LOC: SKLAB8 06:29 | PROVIDERS: ATTEND Internal Medicine | DX: Z20.822 Contact with and (suspected) exposure to COVID-19 (principal) ==

== ENCOUNTER → 2021-08-13 | Outpatient (REF) | payer MEDICARE | LOC: SKLAB8 06:14 | PROVIDERS: ATTEND Internal Medicine | DX: Z20.822 Contact with and (suspected) exposure to COVID-19 (principal) ==

== ENCOUNTER → 2021-08-20 | Outpatient (REF) | payer MEDICARE | LOC: SKLAB8 08:19 | PROVIDERS: ATTEND Internal Medicine | DX: Z20.822 Contact with and (suspected) exposure to COVID-19 (principal) ==

== ENCOUNTER → 2021-09-10 | Outpatient (REF) | payer MEDICARE | LOC: SKLAB8 08:29 | PROVIDERS: ATTEND Neuromusculoskeletal Medicine & OMM | DX: Z20.822 Contact with and (suspected) exposure to COVID-19 (principal) ==

== ENCOUNTER → 2021-09-17 | Outpatient (REF) | payer MEDICARE | LOC: SKLAB8 14:20 | PROVIDERS: ATTEND Internal Medicine | DX: Z20.822 Contact with and (suspected) exposure to COVID-19 (principal) ==

== ENCOUNTER → 2021-09-24 | Outpatient (REF) | payer MEDICARE | LOC: SKLAB8 14:41 | PROVIDERS: ATTEND Internal Medicine | DX: Z20.822 Contact with and (suspected) exposure to COVID-19 (principal) ==

== ENCOUNTER → 2021-10-01 | Outpatient (REF) | payer MEDICARE | LOC: SKLAB8 14:12 | PROVIDERS: ATTEND Internal Medicine | DX: Z20.822 Contact with and (suspected) exposure to COVID-19 (principal) ==

== ENCOUNTER → 2021-10-08 | Outpatient (REF) | payer MEDICARE | LOC: SKLAB8 11:39 | PROVIDERS: ATTEND Internal Medicine | DX: Z20.822 Contact with and (suspected) exposure to COVID-19 (principal) ==

== ENCOUNTER → 2021-10-10 | Outpatient (REF) | payer MEDICARE | LOC: SKLAB8 13:16 | PROVIDERS: ATTEND Internal Medicine | DX: U07.1 COVID-19 (principal); I51.7 Cardiomegaly; Z95.0 Presence of cardiac pacemaker ==

== ENCOUNTER → 2021-10-16 | Outpatient (REF) | payer MEDICARE ==
[2021-10-16 11:17] LABS: HEMATOCRIT 43.8 % (42.0-52.0); MEAN CORPUSCULAR HEMOGLOBIN 29.9 pg (27.0-33.0); MEAN CORPUSCULAR VOLUME 93.6 fl (80.0-96.0); PLATELET COUNT, AUTOMATED 324 10^3/uL (150-450); RED BLOOD COUNT 4.68 10^6/uL (4.30-6.10); WHITE BLOOD COUNT 7.7 10^3/uL (4.0-10.0)
[2021-10-16 11:37] LABS: ALBUMIN 2.9 GM/DL (3.2-5.2); BILIRUBIN,TOTAL 0.3 MG/DL (0.2-1.0); CALCIUM LEVEL 9.1 MG/DL (8.8-10.2); CREATININE FOR GFR 1.35 MG/DL (0.70-1.30); GLOMERULAR FILTRATION RATE 55.3 (>42); POTASSIUM SERUM 3.9 MEQ/L (3.5-5.1); TOTAL PROTEIN 6.9 GM/DL (6.4-8.2)
== END ==
LOC: SKLAB8 14:21
PROVIDERS: ATTEND Internal Medicine
DX: E87.0 Hyperosmolality and hypernatremia (principal)

== ENCOUNTER → 2021-10-17 | Outpatient (REF) | payer MEDICARE ==
[2021-10-17 13:50] LABS: BLOOD UREA NITROGEN 19 MG/DL (7-18); CALCIUM LEVEL 8.8 MG/DL (8.8-10.2); CARBON DIOXIDE LEVEL 26 MEQ/L (21-32); CHLORIDE LEVEL 110 MEQ/L (98-107); CREATININE FOR GFR 1.14 MG/DL (0.70-1.30); GLOMERULAR FILTRATION RATE > 60.0 (>42); GLUCOSE, FASTING 89 MG/DL (70-100); POTASSIUM SERUM 4.2 MEQ/L (3.5-5.1); SODIUM LEVEL 144 MEQ/L (136-145)
== END ==
LOC: SKLAB8 07:00
PROVIDERS: ATTEND Internal Medicine
DX: E87.0 Hyperosmolality and hypernatremia (principal)

== ENCOUNTER → 2021-12-23 | Outpatient (REF) | payer MEDICARE ==
[~2021-12-23] MED LIST changes: -D31000TA2 PO; +VITA100093 PO
[2021-12-23 09:49] LABS: HEMATOCRIT 44.4 % (42.0-52.0); HEMOGLOBIN 14.7 g/dl (13.5-17.5); MEAN CORPUSCULAR HEMOGLOBIN 30.3 pg (27.0-33.0); MEAN CORPUSCULAR HGB CONC 33.1 g/dl (32.0-36.5); MEAN CORPUSCULAR VOLUME 91.5 fl (80.0-96.0); PLATELET COUNT, AUTOMATED 297 10^3/uL (150-450); RED BLOOD COUNT 4.85 10^6/uL (4.30-6.10); WHITE BLOOD COUNT 9.9 10^3/uL (4.0-10.0)
[2021-12-23 09:52] LABS: BLOOD UREA NITROGEN 18 MG/DL (7-18); CALCIUM LEVEL 9.1 MG/DL (8.8-10.2); CARBON DIOXIDE LEVEL 27 MEQ/L (21-32); CHLORIDE LEVEL 110 MEQ/L (98-107); GLOMERULAR FILTRATION RATE > 60.0 (>42); GLUCOSE, FASTING 87 MG/DL (70-100); POTASSIUM SERUM 4.1 MEQ/L (3.5-5.1); SODIUM LEVEL 144 MEQ/L (136-145); VALPROIC ACID (DEPAKOTE) 29.3 UG/ML (50.0-100.0)
== END ==
LOC: SKLAB8 07:00
PROVIDERS: ATTEND Internal Medicine
DX: G40.89 Other seizures (principal); Z79.899 Other long term (current) drug therapy; F03.91 Unspecified dementia, unspecified severity, with behavioral disturbance; I10 Essential (primary) hypertension

== ENCOUNTER → 2022-02-05 | Outpatient (CLI) | payer MEDICARE ==
[2022-02-05 23:59] LABS: APPEARANCE, URINE CLEAR (CLEAR); BACTERIA, URINE AUTO NEGATIVE (NEGATIVE); BILIRUBIN, URINE AUTO NEGATIVE (NEGATIVE); BLOOD, URINE BLOOD 2+ (NEGATIVE); COLOR, URINE YELLOW (YELLOW); GLUCOSE, URINE (UA) AUTO NEGATIVE (NEGATIVE); KETONE, URINE AUTO NEGATIVE (NEGATIVE); LEUKOCYTE ESTERASE, URINE AUTO NEGATIVE (NEGATIVE); NITRITE, URINE AUTO NEGATIVE (NEGATIVE); PROTEIN, URINE AUTO NEGATIVE (NEGATIVE); RBC, URINE AUTO 171 /HPF (0-3); SPECIFIC GRAVITY URINE AUTO 1.025 (1.002-1.035); SQUAMOUS EPITHELIAL CELL UR AU 0 /HPF (0-6); UROBILINOGEN, URINE AUTO 0.2 mg/dL (0.0-2.0); WBC, URINE AUTO 1 /HPF (0-3)
[2022-02-06 00:27] LABS: BASO # 0.1 10^3/uL (0.0-0.2); BASO % 0.3 % (0.0-1.0); EOS # 0.4 10^3/uL (0.0-0.5); EOS % 2.5 % (0.0-3.0); HEMATOCRIT 43.8 % (42.0-52.0); HEMOGLOBIN 14.6 g/dl (13.5-17.5); LYMPH # 2.2 10^3/uL (1.5-5.0); LYMPH % 15.2 % (24.0-44.0); MEAN CORPUSCULAR HEMOGLOBIN 31.7 pg (27.0-33.0); MEAN CORPUSCULAR HGB CONC 33.3 g/dl (32.0-36.5); MONO # 1.2 10^3/uL (0.0-0.8); MONO % 8.2 % (2.0-8.0); NEUTROPHILS # 10.7 10^3/uL (1.5-8.5); NEUTROPHILS % 73.2 % (36.0-66.0); PLATELET COUNT, AUTOMATED 308 10^3/uL (150-450); RED BLOOD COUNT 4.61 10^6/uL (4.30-6.10); WHITE BLOOD COUNT 14.6 10^3/uL (4.0-10.0)
[2022-02-06 00:55] LABS: ALBUMIN 2.9 GM/DL (3.2-5.2); BILIRUBIN,TOTAL 0.3 MG/DL (0.2-1.0); CALCIUM LEVEL 8.7 MG/DL (8.8-10.2); CREATININE FOR GFR 1.29 MG/DL (0.70-1.30); GLOMERULAR FILTRATION RATE 58.1 (>42); POTASSIUM SERUM 3.8 MEQ/L (3.5-5.1)
== END ==
LOC: SKLAB8 23:41
PROVIDERS: ATTEND Internal Medicine
DX: R50.9 Fever, unspecified (principal)

== ENCOUNTER → 2022-02-06 | Outpatient (REF) | payer MEDICARE | LOC: SKLAB8 07:23 | PROVIDERS: ATTEND Internal Medicine | DX: R09.02 Hypoxemia (principal); Z95.0 Presence of cardiac pacemaker ==

== ENCOUNTER → 2022-02-07 | Outpatient (REF) | payer MEDICARE ==
[2022-02-07 07:46] LABS: HEMATOCRIT 41.4 % (42.0-52.0); HEMOGLOBIN 13.3 g/dl (13.5-17.5); MEAN CORPUSCULAR HEMOGLOBIN 30.9 pg (27.0-33.0); MEAN CORPUSCULAR HGB CONC 32.1 g/dl (32.0-36.5); MEAN CORPUSCULAR VOLUME 96.3 fl (80.0-96.0); PLATELET COUNT, AUTOMATED 249 10^3/uL (150-450); WHITE BLOOD COUNT 9.8 10^3/uL (4.0-10.0)
[2022-02-07 08:15] LABS: BLOOD UREA NITROGEN 17 MG/DL (7-18); CARBON DIOXIDE LEVEL 24 MEQ/L (21-32); CHLORIDE LEVEL 117 MEQ/L (98-107); CREATININE FOR GFR 1.06 MG/DL (0.70-1.30); GLOMERULAR FILTRATION RATE > 60.0 (>42); GLUCOSE, FASTING 89 MG/DL (70-100); POTASSIUM SERUM 4.2 MEQ/L (3.5-5.1); SODIUM LEVEL 150 MEQ/L (136-145)
== END ==
LOC: SKLAB8 07:00
PROVIDERS: ATTEND Internal Medicine
DX: E87.0 Hyperosmolality and hypernatremia (principal)

== ENCOUNTER → 2022-02-08 | Outpatient (REF) | payer MEDICARE ==
[2022-02-08 08:26] LABS: HEMOGLOBIN 13.1 g/dl (13.5-17.5); MEAN CORPUSCULAR HEMOGLOBIN 30.9 pg (27.0-33.0); MEAN CORPUSCULAR HGB CONC 32.8 g/dl (32.0-36.5); MEAN CORPUSCULAR VOLUME 94.3 fl (80.0-96.0); PLATELET COUNT, AUTOMATED 267 10^3/uL (150-450); RED BLOOD COUNT 4.24 10^6/uL (4.30-6.10); WHITE BLOOD COUNT 8.8 10^3/uL (4.0-10.0)
[2022-02-08 08:57] LABS: BLOOD UREA NITROGEN 13 MG/DL (7-18); CALCIUM LEVEL 8.9 MG/DL (8.8-10.2); CARBON DIOXIDE LEVEL 25 MEQ/L (21-32); CHLORIDE LEVEL 113 MEQ/L (98-107); CREATININE FOR GFR 0.96 MG/DL (0.70-1.30); GLOMERULAR FILTRATION RATE > 60.0 (>42); GLUCOSE, FASTING 91 MG/DL (70-100); POTASSIUM SERUM 3.7 MEQ/L (3.5-5.1); SODIUM LEVEL 144 MEQ/L (136-145)
== END ==
LOC: SKLAB8 09:30
PROVIDERS: ATTEND Internal Medicine
DX: E87.0 Hyperosmolality and hypernatremia (principal)

== ENCOUNTER → 2022-02-10 | Outpatient (REF) | payer MEDICARE ==
[2022-02-10 07:45] LABS: HEMATOCRIT 40.1 % (42.0-52.0); HEMOGLOBIN 13.4 g/dl (13.5-17.5); MEAN CORPUSCULAR HEMOGLOBIN 30.3 pg (27.0-33.0); MEAN CORPUSCULAR HGB CONC 33.4 g/dl (32.0-36.5); MEAN CORPUSCULAR VOLUME 90.7 fl (80.0-96.0); PLATELET COUNT, AUTOMATED 293 10^3/uL (150-450); RED BLOOD COUNT 4.42 10^6/uL (4.30-6.10); WHITE BLOOD COUNT 9.8 10^3/uL (4.0-10.0)
[2022-02-10 08:04] LABS: BLOOD UREA NITROGEN 16 MG/DL (7-18); CARBON DIOXIDE LEVEL 25 MEQ/L (21-32); CHLORIDE LEVEL 109 MEQ/L (98-107); CREATININE FOR GFR 1.16 MG/DL (0.70-1.30); GLOMERULAR FILTRATION RATE > 60.0 (>42); GLUCOSE, FASTING 101 MG/DL (70-100); POTASSIUM SERUM 3.9 MEQ/L (3.5-5.1); SODIUM LEVEL 142 MEQ/L (136-145)
== END ==
LOC: SKLAB8 09:30
PROVIDERS: ATTEND Internal Medicine
DX: E87.0 Hyperosmolality and hypernatremia (principal)

== ENCOUNTER → 2022-02-11 | Outpatient (REF) | payer MEDICARE ==
[2022-02-11 10:24] LABS: APPEARANCE, URINE CLEAR (CLEAR); BACTERIA, URINE AUTO NEGATIVE (NEGATIVE); BILIRUBIN, URINE AUTO NEGATIVE (NEGATIVE); BLOOD, URINE BLOOD 2+ (NEGATIVE); COLOR, URINE YELLOW (YELLOW); GLUCOSE, URINE (UA) AUTO NEGATIVE (NEGATIVE); KETONE, URINE AUTO NEGATIVE (NEGATIVE); LEUKOCYTE ESTERASE, URINE AUTO NEGATIVE (NEGATIVE); NITRITE, URINE AUTO NEGATIVE (NEGATIVE); PROTEIN, URINE AUTO NEGATIVE (NEGATIVE); RBC, URINE AUTO 48 /HPF (0-3); SPECIFIC GRAVITY URINE AUTO 1.012 (1.002-1.035); SQUAMOUS EPITHELIAL CELL UR AU 0 /HPF (0-6); UROBILINOGEN, URINE AUTO 0.2 mg/dL (0.0-2.0); WBC, URINE AUTO 2 /HPF (0-3)
[2022-02-11 13:03] LABS: HEMATOCRIT 40.3 % (42.0-52.0); HEMOGLOBIN 13.3 g/dl (13.5-17.5); MEAN CORPUSCULAR HEMOGLOBIN 30.9 pg (27.0-33.0); MEAN CORPUSCULAR VOLUME 93.7 fl (80.0-96.0); PLATELET COUNT, AUTOMATED 239 10^3/uL (150-450); WHITE BLOOD COUNT 8.2 10^3/uL (4.0-10.0)
[2022-02-11 13:30] LABS: CALCIUM LEVEL 8.9 MG/DL (8.8-10.2); CREATININE FOR GFR 2.53 MG/DL (0.70-1.30); GLOMERULAR FILTRATION RATE 26.7 (>42); POTASSIUM SERUM 3.9 MEQ/L (3.5-5.1)
== END ==
LOC: SKLAB8 09:35
PROVIDERS: ATTEND Internal Medicine
DX: R50.9 Fever, unspecified (principal)

== ENCOUNTER → 2022-02-13 | Outpatient (REF) | payer MEDICARE ==
[2022-02-13 15:54] LABS: HEMATOCRIT 40.6 % (42.0-52.0); HEMOGLOBIN 13.4 g/dl (13.5-17.5); MEAN CORPUSCULAR HEMOGLOBIN 30.6 pg (27.0-33.0); MEAN CORPUSCULAR VOLUME 92.7 fl (80.0-96.0); PLATELET COUNT, AUTOMATED 284 10^3/uL (150-450); RED BLOOD COUNT 4.38 10^6/uL (4.30-6.10)
[2022-02-13 16:18] LABS: BLOOD UREA NITROGEN 19 MG/DL (7-18); CALCIUM LEVEL 8.9 MG/DL (8.8-10.2); CARBON DIOXIDE LEVEL 25 MEQ/L (21-32); CHLORIDE LEVEL 111 MEQ/L (98-107); CREATININE FOR GFR 1.19 MG/DL (0.70-1.30); GLOMERULAR FILTRATION RATE > 60.0 (>42); GLUCOSE, FASTING 110 MG/DL (70-100); POTASSIUM SERUM 3.8 MEQ/L (3.5-5.1); SODIUM LEVEL 142 MEQ/L (136-145)
== END ==
LOC: SKLAB8 15:15
PROVIDERS: ATTEND Internal Medicine
DX: R41.82 Altered mental status, unspecified (principal)